=== PATIENT | female | born 1980 | race African-American/Black ===

== ENCOUNTER → 2016-06-04 | Day surgery (SDC) | payer OTHER ==
--- NOTE | 2016-06-02 11:57 | History & Physical Pre-Op ---
General Information and HPI History of Present Illness: Miss Jimenes is a 36-year-old female with a long-standing and worsening complaint of a painful bunion right foot. The patient also complains of painful hammertoes involving the second third digits right foot. The patient has undergone an extended course of conservative care, including shoe gear and activity modification, rest, immobilization and courses of NSAIDs. None of this is yielded her any significant relief. The patient presents today for preoperative surgical consultation. The patient was referred to our office from Keaton Hurtado DPM. Allergies/Medications Allergies: Coded Allergies: latex (Severe, HIVES 05/31/16) Past History Surgical History Pertinent Surgical History: none (Rotator cuff repair, bunionect) Review of Systems Review of Systems: Review of systems unremarkable except for that noted in history of present illness Exam & Diagnostic Data Physical Exam: Lungs clear bilaterally. Heart sounds rate and rhythm regular. Lower extremity physical exam demonstrates intact pedal pulses bilaterally. Pulses dorsalis pedis and posterior tibial arteries are palpable bilaterally. Patient without any sensory motor deficits. Deep tendon reflexes grossly intact. Patient noted a has never in pain with palpation range of motion through the right first metatarsophalangeal joint. The hallux is noted to be tracking in track bound. There are also reducible digital contractions involving the second third toes right foot. There is a painful keloid noted to the dorsal left foot. Assessment/Plan Assessment/Plan: Painful bunions and hammertoes right foot with a painful keloid left foot. A lengthy discussion reviewing both surgical and conservative options was held the patient at bedside and the patient elects to go forward with surgery despite the risks. As Ranked By This Provider Problem List: 1. Acquired hallux valgus of right foot Attending MD Review Statement Attending Statement Attending MD Statement: examined this patient
[~2016-06-04] VITALS: Ht 175.3 cm; Wt 104.3 kg
[~2016-06-04] MED LIST: TOPAMAX200 M1 PO; WELLBUTRIN XL300 M2 PO
--- NOTE | 2016-06-04 09:17 | Operative Report ---
Operative/Inv Procedure Report Surgery Date: 06/04/16 Name of Procedure: 1 Ronen bunionectomy right foot 2 arthroplasty second toe right foot 3 arthroplasty third toe right foot 4 Scar revision and closure left foot Pre-Operative Diagnosis: 1 hallux valgus right foot 2 hammertoe second toe right foot 3 hammertoe third toe right foot 4 painful scar left foot Post-Operative Diagnosis: Same Estimated Blood Loss: scant Surgeon/Musical Instrument Maker: XIMENA GOSS DPM Anesthesia: moderate sedation, block Operative/Procedure Note Note: After obtaining informed consent the patient was brought to the operating room and placed on the operating table in supine position. The patient isn't securely fastened to the operating table utilizing safety belt. After administration of IV sedation, 10 mL of 0.5% Marcaine plain was infiltrated about the patient's left and right ankles. 2 g of Ancef were delivered intravenously times one dose. 2 well-padded ankle tourniquets were placed about the patient's left and right lower extremity's. Left right feet were then scrubbed prepped and draped in usual aseptic manner. Right lower extremity was elevated to examine to limb, which point the ankle tourniquet was inflated 250 mmHg. Attention directed dorsal aspect the right foot, where 6 cm linear incision was made just medial to the course of the extensor listless longus tendon. Skin was signed 15 blade and deepened subtenons tissues. The dissection was then carried down to the capture structures where an inverted L capsulotomy was performed exposing the medial eminence. This was then removed a sagittal bone saw. Attention directed to the first interspace where lateral capsulotomy was performed with release of the fibular suspensory ligament and the oblique head of the abductor hallucis tendon. The extensor hallucis brevis tendon was identified and tenotomized. A Chevron type osteotomy was then performed and the capital fragment was transposed laterally. It was then fixated utilizing standard AO fixation techniques. The medial shelf was revised and the capture structures were repaired 3-0 Vicryl. Subtenons tissues reapproximated 4-0 Vicryl and the skin is reapproximated 4-0 nylon. 2 converging semielliptical incisions centered over the proximal interphalangeal joints of the second third toes with an incised with a 15 blade. The underlying soft tissue attachments about the ellipses of skin were freed and passed from the operative field. Extensor tenotomies were then performed exposing the heads of the proximal phalanges. These were then removed a sagittal bone saw. The extensor tendons reapproximated 4-0 Vicryl and the skin edges reapproximated 4-0 nylon. The incisions were then dressed with Xeroform 4 x 4's Kerlix and Andrea wrap. The tourniquet was then deflated and the left lower extremity is elevated to exsanguinate the limb, which point the ankle tourniquet was inflated 250 mmHg. Attention directed dorsal aspect the left foot, where a large cicatrix was identified. It was ellipsed out and passed from the operative field in toto. The adjacent tissues were then undermined with release of the deep soft tissue attachments. The dorsal medial dorsal lateral flaps were then rotated towards the central portion wound and held together on the deep side with 3-0 Vicryl. The septae stitches were reapproximated with 4-0 Vicryl and the skin edges reapproximated 4-0 nylon. Incision was dressed with Steri-Strips and Xeroform followed by 4 x 4's Kerlix and an Andrea wrap. The patient was noted to tolerate both procedure and anesthesia well and the patient was transported from the operating room to recovery with vital signs stable best assess intact to all digits bilateral feet.
== END ==
LOC: STS 01:49
DX: M20.11 Hallux valgus (acquired), right foot (principal); M20.41 Other hammer toe(s) (acquired), right foot; L91.0 Hypertrophic scar; L90.5 Scar conditions and fibrosis of skin
CPT/HCPCS: 81025; 88304; 88305; J0690; J1885; J2001; J2250